=== PATIENT | male | born 1980 | race Two or more races ===

== ENCOUNTER 2020-09-19 19:42 | Emergency (ER) | payer OTHER ==
[~2020-09-19] VITALS: Ht 172.7 cm; Wt 70.3 kg
[2020-09-19] MEDS ORDERED: SODIUM CHLORIDE 0.9% 1,000 ML IV ONE (20:30)
[2020-09-19] MEDS ORDERED: THIAMINE INJ 100 MG in SODIUM CHLORIDE 0.9% 1,000 ML IV ONE (20:30)
[2020-09-19 20:32] LABS: Basophils # (auto) 0.1 10 ^3/uL (0-0.2); Basophils % (auto) 0.8 % (0.0-2.0); Eosinophils # (auto) 0.1 10 ^3/uL (0-0.8); Eosinophils % (auto) 0.9 % (0.0-7.0); Hematocrit 36.5 % (41.0-53.0); Hemoglobin 12.6 g/dL (13.5-17.5); Lymphocytes # (auto) 3.2 10 ^3/uL (0.4-5.4); Lymphocytes % (auto) 28.4 % (10.0-50.0); Mean Corpuscular Hemoglobin 33.1 pg (28.0-32.0); Mean Corpuscular Hgb Conc. 34.5 g/dL (32.0-36.0); Monocytes # (auto) 0.6 10 ^3/uL (0-1.3); Monocytes % (auto) 5.1 % (0.0-12.0); Neutrophils # (auto) 7.2 10 ^3/uL (1.6-8.6); Neutrophils % (auto) 64.8 % (37.0-80.0); Nucleated Red Blood Cells % 0.1 %; Platelet Count (auto) 299 10^3/uL (140-450); White Blood Cell 11.1 10^3/uL (4.4-10.8)
[2020-09-19 20:39] LABS: Red Cell Distribution Width 20.2 % (11.8-14.3)
[2020-09-19 21:01] LABS: Albumin 2.9 g/dL (3.4-5.0); Calcium 7.9 mg/dL (8.5-10.1); Salicylate < 1.7 mg/dL (2.8-20.0)
[2020-09-19 21:03] LABS: Acetaminophen < 2.0 ug/mL (10-30)
[2020-09-19 21:06] LABS: BUN/Creatinine Ratio 4.1; Bilirubin, Total 0.8 mg/dL (0.2-1.0); Total Protein 8.4 g/dL (6.4-8.2)
[2020-09-19 21:34] LABS: Potassium 2.8 mmol/L (3.5-5.1)
[2020-09-19] MEDS ORDERED: SODIUM CHLORIDE 0.9% 2,000 ML IV ONE (21:45)
[2020-09-19] MEDS ORDERED: ONDANSETRON HCL 4 MG/2 ML VIAL IV ONE (22:00)
[2020-09-19 23:26] LABS: Urine Bacteria NONE SEEN /hpf (None Seen); Urine Blood Negative /uL (Negative); Urine Specific Gravity 1.005 (1.001-1.035); Urine WBC <1 /hpf (0 - 3)
[2020-09-19 23:34] LABS: Amphetamine Screen, Urine NEGATIVE (NEGATIVE); Barbiturate Scree,Urine NEGATIVE (NEGATIVE); Benzodiazephine Screen, Urine NEGATIVE (NEGATIVE); Cannabinoid Screen, Urine NEGATIVE (NEGATIVE); Cocaine Screen, Urine NEGATIVE (NEGATIVE); Opiate Scree,Urine NEGATIVE (NEGATIVE); Phencyclidine Screen, Urine NEGATIVE (NEGATIVE)
[2020-09-20] VITALS: BP 99/66
[2020-09-20] MEDS ORDERED: POTASSIUM CHL 20 Meq TABLET PO ONE (00:30)
== END 2020-09-20 00:48 | disposition still patient (30) ==
LOC: EDBD 19:42 → ER 19:42
DX: F12.920 Cannabis use, unspecified with intoxication, uncomplicated (principal); K72.90 Hepatic failure, unspecified without coma; E87.6 Hypokalemia; Z20.822 Contact with and (suspected) exposure to COVID-19
CPT/HCPCS: 36415; 70450; 80053; 80307; 80320; 80329; 81001; 82140; 85025; 87426; 93005; 96361; 96365; 99285; J3411; J7030